=== PATIENT | male | born 1935 | race Caucasian/White ===

== ENCOUNTER 2020-06-04 12:59 | Observation (INO) | payer MEDICARE, OTHER ==
[~2020-06-04] VITALS: Ht 175.3 cm; Wt 84.8 kg
[~2020-06-04 12:59] MED LIST: ACETAMINOPHEN-1 EAC1 PO; CLINDAMYCIN HC300 MG PO; ECOTRIN81 MG PO; ERYTHROMYCIN250 M1 PO; FLOMAX0.4 MG PO; FLONASE 0.05% N16 GM; HUMALOG MI100 UNIT/3 SQ; HYDROCHLOROTHIA25 MG PO; IMDUR ER TAB 3030 MG PO; LEVOTHYROXINE112 MCG PO; LOPRESSOR 25 MG25 MG PO; LOVAZA1 GM PO; NOVOLOG MI100 UNIT/1 SC; PREVACID30 MG PO; PRINIVIL20 MG PO; PROSCAR5 MG PO; SOTALOL80 MG PO; SYNTHROID100 MCG PO; VITAMIN D250 MCG PO; ZOFRAN4 MG PO
[2020-06-04 16:49] LABS: BUN/CREATININE RATIO 24 (0-10)
[2020-06-04 17:32] LABS: HEMOGLOBIN 16.8 gm/dl (14.0-17.5); RED BLOOD COUNT 5.54 M/UL (4.20-5.50); WHITE BLOOD COUNT 8.6 K/UL (4.5-11.0)
[2020-06-05 03:52] LABS: HEMOGLOBIN 16.8 gm/dl (14.0-17.5); RED BLOOD COUNT 5.39 M/UL (4.20-5.50)
[2020-06-05 04:04] LABS: WHITE BLOOD COUNT 6.4 K/UL (4.5-11.0)
[2020-06-05 04:09] LABS: BUN/CREATININE RATIO 22 (0-10)
[2020-06-06] MEDS ORDERED: CLOPIDOGREL75 MG PO (11:44)
[2020-06-11] MEDS ORDERED: ZESTRIL10 MG PO (08:14)
== END 2020-06-06 15:48 | disposition home or self-care (01) ==
LOC: ER1 12:59 → M/S 18:58 → CDU 18:58 → M/S 20:43
PROVIDERS: Nurse Practitioner; ADMIT Internal Medicine
DX: G45.9 Transient cerebral ischemic attack, unspecified (principal); E11.9 Type 2 diabetes mellitus without complications; I10 Essential (primary) hypertension; E78.5 Hyperlipidemia, unspecified; I49.5 Sick sinus syndrome; I25.10 Atherosclerotic heart disease of native coronary artery without angina pectoris; N40.0 Benign prostatic hyperplasia without lower urinary tract symptoms; E03.9 Hypothyroidism, unspecified; Z20.822 Contact with and (suspected) exposure to COVID-19; Z79.4 Long term (current) use of insulin; Z88.0 Allergy status to penicillin; Z88.1 Allergy status to other antibiotic agents; Z88.6 Allergy status to analgesic agent; Z88.8 Allergy status to other drugs, medicaments and biological substances; Z79.82 Long term (current) use of aspirin; Z79.899 Other long term (current) drug therapy; Z95.0 Presence of cardiac pacemaker; Z95.5 Presence of coronary angioplasty implant and graft; Z95.2 Presence of prosthetic heart valve
CPT/HCPCS: ECHO; 36415; 70450; 80048; 80053; 80061; 81001; 82962; 85025; 85610; 85730; 93005; 93306; 93880; 96372; 96374; 96375; 97161; 99285; G0378; J1650; U0002

== ENCOUNTER 2020-06-11 12:30 | Observation (INO) | payer MEDICARE ==
[~2020-06-11] VITALS: Ht 175.3 cm; Wt 84.4 kg
[~2020-06-11 12:30] MED LIST changes: +CLOPIDOGREL75 MG PO; +ZESTRIL10 MG PO
[2020-06-11 14:41] LABS: HEMOGLOBIN 16.8 gm/dl (14.0-17.5); RED BLOOD COUNT 5.34 M/UL (4.20-5.50); WHITE BLOOD COUNT 6.2 K/UL (4.5-11.0)
[2020-06-11 14:59] LABS: BUN/CREATININE RATIO 22 (0-10)
[2020-06-12 03:23] LABS: HEMOGLOBIN 17.4 gm/dl (14.0-17.5); RED BLOOD COUNT 5.44 M/UL (4.20-5.50); WHITE BLOOD COUNT 6.7 K/UL (4.5-11.0)
[2020-06-12 03:45] LABS: BUN/CREATININE RATIO 19 (0-10)
--- NOTE | 2020-06-12 04:49 | NUR ---
06/12/20 0400 SCDS APPLIED AT THIS TIME.
--- NOTE | 2020-06-13 17:36 | NUR ---
PATIENT REFUSED HIS BS CHECKED
== END 2020-06-13 17:27 | disposition home or self-care (01) ==
LOC: ER1 12:30 → CDU 15:17 → M/S 15:17
PROVIDERS: Emergency Medicine; Physician Assistant; ADMIT Internal Medicine
DX: G45.9 Transient cerebral ischemic attack, unspecified (principal); U07.1 COVID-19; E11.9 Type 2 diabetes mellitus without complications; I49.5 Sick sinus syndrome; I10 Essential (primary) hypertension; E78.5 Hyperlipidemia, unspecified; I25.10 Atherosclerotic heart disease of native coronary artery without angina pectoris; E03.9 Hypothyroidism, unspecified; N40.0 Benign prostatic hyperplasia without lower urinary tract symptoms; Z88.0 Allergy status to penicillin; Z88.1 Allergy status to other antibiotic agents; Z88.6 Allergy status to analgesic agent; Z88.8 Allergy status to other drugs, medicaments and biological substances; Z95.0 Presence of cardiac pacemaker; Z95.2 Presence of prosthetic heart valve; Z95.5 Presence of coronary angioplasty implant and graft; Z79.4 Long term (current) use of insulin; Z79.02 Long term (current) use of antithrombotics/antiplatelets; Z79.82 Long term (current) use of aspirin; Z79.899 Other long term (current) drug therapy
CPT/HCPCS: 36415; 70450; 71045; 80048; 80053; 82962; 83690; 83735; 84100; 85025; 85610; 85730; 93005; 96372; 96374; 97161; 99285; G0378; U0002

== ENCOUNTER → 2021-07-25 | Outpatient (CLI) | payer MEDICARE | LOC: HEART 5 12:58 | DX: I35.0 Nonrheumatic aortic (valve) stenosis (principal); Z95.2 Presence of prosthetic heart valve; I49.5 Sick sinus syndrome; I51.7 Cardiomegaly; Z95.0 Presence of cardiac pacemaker | CPT/HCPCS: 93306 ==